=== PATIENT | male | born 1995 | race Two or more races ===

== ENCOUNTER 2018-09-19 08:29 | Emergency (ER) | payer SELFPAY ==
[2018-09-19 08:48] LABS: PLATELET COUNT 392 10^3/uL (150-400)
--- NOTE | 2018-09-19 08:54 | EDPHY ---
H & P Stated Complaint: first time SZ today at work Time Seen by Provider: 09/19/18 08:44 HPI/ROS: CHIEF COMPLAINT: New onset seizure HISTORY OF PRESENT ILLNESS: 22-year-old male presents with new onset seizure. He was at work this morning, feeling fine, when he had a witnessed generalized seizure. He fell to the ground and struck his head. He then had a 2nd generalized seizure lasting approximately 30 sec. When he awoke, he was not confused (according to pt). c/o moderate JOHNSON and mild mid back pain after the seizure. He denies prior seizure or drug use. REVIEW OF SYSTEMS: complete 10 point ROS reviewed and is negative except for the noted elements in the HPI Source: Patient - Personal History Current Tetanus/Diphtheria Vaccine: Yes Current Tetanus Diphtheria and Acellular Pertussis (TDAP): Yes - Medical/Surgical History Hx Asthma: No Hx Chronic Respiratory Disease: No Hx Diabetes: No Hx Cardiac Disease: No Hx Renal Disease: No Hx Cirrhosis: No Hx Alcoholism: No Hx HIV/AIDS: No Hx Splenectomy or Spleen Trauma: No Other PMH: Appy - Social History Smoking Status: Former smoker Alcohol Use: Sober Drug Use: None - Physical Exam Exam: General Appearance: Alert, pleasant, not confused Head: right forehead tenderness Eyes: Pupils equal and round, no conjunctival pallor or injection ENT, Mouth: Mucous membranes moist Neck: Normal inspection Respiratory: Lungs are clear to auscultation Cardiovascular: Regular rate and rhythm Gastrointestinal: Abdomen is soft and nontender Back: midline tenderness midthoracic area Neurological: Alert, oriented x3, cranial nerves II through XII intact, motor 5 /5, sensory intact to light touch, normal gait Skin: Warm and dry Extremities: Normal inspection Psychiatric: Mood and affect normal Constitutional: Initial Vital Signs Temperature (C) 37.3 C 09/19/18 08:34 Heart Rate 98 09/19/18 08:34 Respiratory Rate 16 09/19/18 08:34 Blood Pressure 154/97 H 09/19/18 08:34 O2 Sat (%) 93 09/19/18 08:34 O2 Delivery Mode Room Air Allergies/Adverse Reactions: No Known Allergies Allergy (Unverified 09/19/18 08:34) Home Medications: Medication Instructions Recorded Hydrocodone/APAP 5/325 [Mon[place] 1 - 2 tab PO Q4H PRN #15 tab 09/19/18 5/325] Medical Decision Making - Diagnostics Imaging Results: CT head: NAD Thoracic spine x-ray: T7 compression fracture CT thoracic spine: Acute T7 compression fracture, mild Imaging: Discussed imaging studies w/ director call center sales Radiologist, I viewed and interpreted images myself ED Course/Re-evaluation: Assessment: New onset seizure. The patient is currently alert and neurologic exam is normal. Complains of a headache and of mid back pain. CT scan of the brain is unremarkable. Thoracic spine x-ray reveals a possible compression fracture at T7. Results discussed with the patient. Will proceed with CT scan of the thoracic spine to confirm. Toradol 30 mg IV given for back pain. CT scan of the thoracic spine reveals an acute T7 compression fracture, mild. The patient's pain is well controlled. He will follow up with Neurosurgery for the compression fracture. A prescription for hydrocodone was written. Seizure precautions discussed with the patient. He will call Neurology to make a follow -up appointment. Differential Diagnosis: Differential diagnosis for seizure includes though it is not limited to status epilepticus, hypoglycemia, intracranial hemorrhage, CVA, benzodiazepine withdrawal, alcohol withdrawal, epilepsy. - Data Points Laboratory Results: Laboratory Results 09/19/18 08:40 09/19/18 08:40 Medications Given: Discontinued Medications Acetaminophen (Tylenol) 1,000 mg PO EDNOW ONE Stop: 09/19/18 09:30 Last Admin: 09/19/18 09:32 Dose: 1,000 mg Ketorolac Tromethamine (Toradol) 30 mg IVP EDNOW ONE Stop: 09/19/18 09:47 Last Admin: 09/19/18 10:21 Dose: 30 mg Miscellaneous Medication (Icy Hot Lidocaine/Menthol 4%/1% Patch) 1 patch TD EDNOW ONE Stop: 09/19/18 10:42 Last Admin: 09/19/18 10:53 Dose: 1 patch Departure - Departure Disposition: Home, Routine, Self-Care Clinical Impression: New onset seizure Thoracic compression fracture Qualifiers: Encounter type: initial encounter Fracture type: closed Qualified Code(s): S22.000A - Wedge compression fracture of unspecified thoracic vertebra, initial encounter for closed fracture Condition: Good Instructions: Vertebral Compression Fracture (ED), Narcotic Safety (ED), New- Onset Seizure in Adults (ED) Additional Instructions: Instructions for new onset seizure: 1. No driving, dangerous activities such as riding a ski lift, swimming in a pool or other behavior that could put you or someone else at risk in the event of a recurrent seizure. You will need to be cleared by a neurologist to resume these activities. 2. Please return to the ED for recurrent seizure, headache, numbness, weakness, altered mental status or other concerns. 3. Please follow up with neurologist you have been referred to this week to schedule a follow-up appointment. You have a compression fracture in the thoracic spine. You will need to followup with Neurosurgery. Call to make an appointment. Referrals: Raimundo Agee DO [Medical Doctor] - As per Instructions (Call to make an appointment.) Armando Ledesma MD [Medical Doctor] - As per Instructions (Call to make an appointment.) Prescriptions: Hydrocodone/APAP 5/325 [Monroe 5/325] 1 - 2 tab PO Q4H PRN #15 tab PRN Reason: Pain, Moderate
[2018-09-19] MEDS ORDERED: ACETAMINOPHEN 500 MG TAB PO ONE (09:29)
[2018-09-19] MEDS ORDERED: KETOROLAC 15 MG/1 ML SDV IVP ONE (09:46)
[2018-09-19] MEDS ORDERED: LIDOCAINE 4%/MENTHOL 1% PATCH TD ONE (10:41)
[2018-09-19 11:05] VITALS: BP 154/85
[2018-09-19] MEDS ORDERED: PATCH REMOVAL 1 EA PATCH TD SCH (21:00)
== END 2018-09-19 11:04 | disposition home or self-care (01) ==
DX: R56.9 Unspecified convulsions (principal); S22.060A Wedge compression fracture of T7-T8 vertebra, initial encounter for closed fracture; X58.XXXA Exposure to other specified factors, initial encounter; Z87.891 Personal history of nicotine dependence
CPT/HCPCS: 96374; J1885